=== PATIENT | male | born 1990 | race Caucasian/White ===

== ENCOUNTER → 2018-01-20 | Outpatient (CLI) | payer OTHER ==
[2018-01-20 09:50] LABS: HCT 44.6 % (39.0-53.0); HGB 15.4 gm/dL (13.0-17.5); MCH 29.1 pg (25.0-35.0); MCHC 34.6 g/dL (31.0-37.0); MCV 84.1 fL (80.0-100.0); Mean Platelet Volume 6.6; Platelet Count 357 k/uL (150-450); WBC 6.7 k/uL (3.8-10.6)
[2018-01-20 17:22] LABS: Albumin 4.9 g/dL (3.80-4.90); Albumin/Globulin Ratio 2.04 (1.20-2.10); Anion Gap 5.8 mmol/L (4.00-12.00); Calcium 9.8 mg/dL (8.7-10.3); Carbon Dioxide 30.2 mmol/L (21.6-31.8); Globulin 2.4 g/dL (2.1-3.7); LDL Cholesterol,Calculated 123.2 mg/dL (0.0-131.0); Potassium 4.3 mmol/L (3.5-5.5); Total Bilirubin 0.7 mg/dL (0.2-1.2); Total Protein 7.3 g/dL (6.2-8.2); VLDL Calculation 39.8 mg/dL (5.00-40.00)
[2018-01-20 17:29] LABS: T4, Free (Free Thyroxine) 1.1 ng/dL (0.80-1.80)
== END | disposition home or self-care (01) ==
LOC: LABWHC1 08:58
PROVIDERS: ATTEND Family Medicine
DX: Z00.00 Encounter for general adult medical examination without abnormal findings (principal)
CPT/HCPCS: 36415; 80053; 80061; 84439; 84443; 85027

== ENCOUNTER → 2018-06-12 | Outpatient (CLI) | payer OTHER ==
--- NOTE | 2018-06-12 11:13 | US ---
EXAMINATION TYPE: US renal artery duplex complet DATE OF EXAM: 06/12/2018 COMPARISON: NONE CLINICAL HISTORY: R03.0 Elevated blood pressure. Patient not on meds for blood pressure. Pressure is high at Dr's office only. Abnormal renal function per patient. MEASUREMENTS: RENAL SIZE: Rt Kidney: 10.8 x 5.9 x 6.1 cm Lt Kidney: 11.4 x 6.6 x 5.5 cm RESISTANCE INDEX Right: 0.59 Left: 0.58 RA/AO RATIO (< 3.5 ) Right: 1.3 Left: 1.1 RA VELOCITY ( < 180 cm/s) Right: 135 Left: 110 Aorta and renals unremarkable. No ultrasound evidence for renal artery stenosis. Good upstroke on seg mentals at renal hilum. Low resistive waveforms noted throughout. IMPRESSION: No sonographic evidence of renal arterial stenosis.
== END | disposition home or self-care (01) ==
LOC: RADUSWWP 07:57
PROVIDERS: ATTEND Family Medicine
DX: R03.0 Elevated blood-pressure reading, without diagnosis of hypertension (principal)
CPT/HCPCS: 93975